=== PATIENT | female | born 1935 | race Hispanic/Latino ===

== ENCOUNTER 2018-06-04 18:38 | Emergency (ER) | payer MEDICARE ==
--- NOTE | 2018-06-04 19:11 | RAD ---
RADIOGRAPH CHEST 1 VIEW: 06/04/18 HISTORY: 83-year-old female status post syncope. FINDINGS: There are no air space densities, pulmonary edema, pneumothorax, or cardiomegaly. The lateral costop hrenic angles are sharp. There is a small, focal, faint nodular density at the right lateral upper/mi d lung zone, which is probably stable compared to 04/24/16. IMPRESSION: No acute cardiopulmonary findings. luz elena baker POS: RAFY
[2018-06-04 19:13] LABS: #Lymphocytes 0.6 thou/uL (1.20-3.40); #Monocytes 0.5 thou/uL (0.11-0.59); #Neutrophils 5.1 thou/uL (1.40-6.50); %Basophils 0.6 % (0.0-1.0); %Eosinophils 0.5 % (0.0-10.0); %Lymphocytes 10.2 % (21.0-51.0); %Monocytes 7.4 % (0.0-10.0); %Neutrophils 81.3 % (42.0-75.0); Hemoglobin 13.4 g/dL (12.0-16.0); Mean Corpuscular HGB CONC 32.9 g/dL (32.0-36.0); Mean Corpuscular Hemoglobin 30.7 pg (27.0-31.0); Mean Corpuscular Volume 93.5 fL (78.0-98.0); Mean Platelet Volume 8.9 fL (7.4-10.4); Platelet Count 88 thou/uL (130-400); RBC Distribution Width 12.2 % (11.5-14.5); Red Blood Cell (RBC) Count 4.35 mill/uL (4.20-5.40); White Blood Cell (WBC) Count 6.2 thou/uL (4.8-10.8)
[2018-06-04 19:30] LABS: ALT (SGPT) 30 U/L (8-55); AST (SGOT) 37 U/L (5-34); Albumin 4.1 g/dL (3.4-4.8); Alkaline Phosphatase 66 U/L (40-150); Anion Gap 13 mmol/L (10-20); BUN (Urea Nitrogen) 31 mg/dL (9.8-20.1); Bilirubin, Total 0.6 mg/dL (0.2-1.2); CK (CPK) 192 U/L (29-168); Calc. Creatinine Clearance 0 mL/min (70-130); Calcium 9.2 mg/dL (7.8-10.44); Carbon Dioxide 22 mmol/L (23-31); Chloride 106 mmol/L (98-107); Estimated GFR-MDRD 54; Glucose 149 mg/dL (83-110); Lipase 46 U/L (8-78); Potassium 3.9 mmol/L (3.5-5.1); Protein, Total 7.1 g/dL (6.0-8.3); Sodium 137 mmol/L (136-145)
[2018-06-04 19:35] LABS: Troponin I Less than 0.010 ng/mL (< 0.028)
[2018-06-04 20:01] LABS: Bilirubin Negative (Negative); Blood, Urine Small (Negative); Clarity CLEAR (Clear); Glucose, Urine (Dipstick) Negative (Negative); Leukocyte Small (Negative); Nitrite Negative (Negative); Protein, Urine (Dipstick) 30 mg/dL (Neg-Trace); Specific Gravity, Urine 1.021 (1.002-1.036)
[2018-06-04 20:03] LABS: Bacteria/HPF None Seen HPF (None Seen); Hyaline Casts/LPF 7-10 HYALINE CAST LPF (0-3 Hyaline); Pathc Cast-AUWi Flag 1.59 (0-2.49)
[2018-06-04 20:04] LABS: Renal Epithelial None Seen HPF (0-3); Transitional Epithelial NONE SEEN HPF (0-3)
== END 2018-06-04 20:30 | disposition home or self-care (01) ==
LOC: ERS 18:38
DX: R55 Syncope and collapse (principal); E03.9 Hypothyroidism, unspecified; E78.5 Hyperlipidemia, unspecified; I10 Essential (primary) hypertension; M19.90 Unspecified osteoarthritis, unspecified site
CPT/HCPCS: 36415; 71045; 80053; 81003; 81015; 82553; 83690; 84484; 85025; 93005; 94760

== ENCOUNTER 2018-07-19 11:31 | Observation (INO) | payer MEDICARE ==
[2018-07-19 13:39] LABS: Troponin I Less than 0.010 ng/mL (< 0.028)
[2018-07-19] MEDS ORDERED: Ondansetron ODT 4 MG TAB SL PRN (15:14)
[2018-07-19] MEDS ORDERED: Ondansetron PF 4 MG/2 ML Vial IVP PRN ×2 (15:14→18:18)
[2018-07-19] MEDS ORDERED: Acetaminophen 325 MG TAB PO PRN ×2 (15:14→18:18)
[2018-07-19 16:40] LABS: Troponin I Less than 0.010 ng/mL (< 0.028)
[2018-07-19] MEDS ORDERED: Nitroglycerin 0.4 MG TAB (25 Tab Bottle) PO PRN (18:18)
[2018-07-19] MEDS ORDERED: Senokot S 8.6-50 MG TAB PO PRN (18:18)
[2018-07-19] MEDS ORDERED: Ondansetron ODT 4 MG TAB PO PRN (18:18)
[2018-07-19] MEDS ORDERED: Calcium Carbonate 500 MG ChewTAB PO PRN (18:18)
[2018-07-19] MEDS ORDERED: Famotidine 20 MG TAB PO PRN (18:21)
[2018-07-19] MEDS ORDERED: REFRESH PLUS (Carboxymethylcellulose 0.5%) Opth Drops EA EYE PRN (18:21)
[2018-07-19] MEDS ORDERED: hydrALAZINE 20 MG/ML VIAL SLOW IVP PRN (18:22)
[2018-07-19] MEDS: Sodium Chloride 0.9% 1,000 ML IV SCH (18:51)
--- NOTE | 2018-07-19 20:44 | HP ---
DATE OF ADMISSION: 07/19/2018 PRIMARY CARE PHYSICIAN: Dr. Kirby. CHIEF COMPLAINT: Syncopal episode. HISTORY OF PRESENT ILLNESS: Patient is an 83-year-old female with hypertension, hypothyroidism prese nted to the emergency room with an episode of syncope earlier today. She had a syncopal episode 2 mo nths ago and was evaluated in the emergency room. She was subsequently discharged home at that time. Patient woke up around 5:30 a.m. and felt normal. Around 8:00 a.m., she felt lightheaded and dizzy. For this reason, she sat down on the chair. She then passed out without significant injuries. She regained consciousness after 1 to 2 minutes. There was no confusion at this time. She denies any ch est pain, shortness of breath, palpitations, urinary or bowel incontinence, headache, double vision, blurring of vision, facial asymmetry, or swallowing difficulty. She is compliant with all of her med ications. In the emergency room at [place], her initial vital signs showed temperature 97.1, respirations 16, pulse rate of 86, blood pressure 131/66 with O2 saturation 99% on room air. She received aspirin in the emergency room. Troponins were negative. D-dimer was negative. PAST MEDICAL HISTORY: 1. Hypertension. 2. Hyperlipidemia. 3. Degenerative joint disease. 4. Glaucoma. 5. Recent herpes zoster. 6. Hypothyroidism. 7. GERD. 8. Osteoporosis. PAST SURGICAL HISTORY: 1. Bilateral cataract surgery. 2. Left foot surgery. 3. Cervical spine surgery. ALLERGIES: Patient is allergic to INFLUENZA VACCINE, PENICILLIN. CURRENT HOME MEDICATIONS: Lisinopril 20 mg b.i.d., Crestor 5 mg at bedtime, levothyroxine 50 mcg rickey ly, meclizine 12.5 mg 3 times a day, latanoprost eyedrops at bedtime, Fosamax every 7 days, Pepcid as needed, Tylenol as needed. SOCIAL HISTORY: Patient currently lives at home with her son. No smoking, alcohol, or drug use. Indra nunez is FULL CODE and makes her own decision with help of her family. She has lost approximately 2-3 po unds recently. She has poor appetite per son. She is FULL CODE. FAMILY HISTORY: Negative for premature coronary artery disease. REVIEW OF SYSTEMS: The following complete review of systems was negative, unless otherwise mentioned in the HPI or below: Constitutional: Weight loss or gain, ability to conduct usual activities. Sk in: Rash, itching. Eyes: Double vision, pain. ENT/Mouth: Nose bleeding, neck stiffness, pain, te nderness. Cardiovascular: Palpitations, dyspnea on exertion, orthopnea. Respiratory: Shortness of breath, wheezing, cough, hemoptysis, fever, or night sweats. Gastrointestinal: Poor appetite, abdo nicholas pain, heartburn, nausea, vomiting, constipation, or diarrhea. Genitourinary: Urgency, frequen cy, dysuria, nocturia. Musculoskeletal: Pain, swelling. Neurologic/Psychiatric: Anxiety, depressi on. Allergy/Immunologic: Skin rash, bleeding tendency. PHYSICAL EXAMINATION: VITAL SIGNS: As discussed above. GENERAL: An 83-year-old female in no apparent distress. Denies any chest discomfort. HEENT: Atraumatic, normocephalic. Sclerae anicteric. Moist mucous membrane, no oral lesion. NECK: Supple, no JVD, no carotid bruit. LUNGS: Clear to auscultation bilaterally. No wheezing, rales, or rhonchi. HEART: S1, S2 present. Regular rate and rhythm. No murmur, rubs, or gallops appreciated. ABDOMEN: Soft, nontender, bowel sounds present. EXTREMITIES: No edema or calf tenderness. NEUROLOGIC: Grossly nonfocal, moves all four extremities. PSYCHIATRY: Alert, awake, oriented x3. SKIN: Warm and dry. LYMPH NODES: No palpable lymph nodes in the neck. PERIPHERAL VASCULAR: Radial pulses palpable bilaterally. MUSCULOSKELETAL: No joint swelling or tenderness. LABORATORY FINDINGS: CBC showed WBC 11.3, hemoglobin 14.7, hematocrit 42.5, platelet 149. D-dimer w as negative. Chemistries showed sodium 136, potassium 4.3, chloride 102, bicarbonate 24, BUN 33, cre atinine 0.94, glucose of 135. AST 50, ALT 62. Troponin negative. BNP 47.4. Lactic acid was normal . Urinalysis was negative for WBC. EKG by my review showed sinus rhythm with left axis deviation. Chest x-ray recently by my review was negative for infiltrate. IMPRESSION: 1. Syncopal episode. Possibilities include hypotension versus cardiogenic syncope. Patient will be kept n.p.o. past midnight. Serial troponins. Echocardiogram and carotid Doppler will be obtained. We will also rule out orthostatic hypotension. Due to significant low BMI, we will also check corti gene and TSH in a.m. 2. Moderate protein-calorie malnutrition. 3. Hypertension. We will reduce the lisinopril dose for now. 4. Glaucoma. We will resume her home medications. 5. Mild dehydration. We will start her on gentle IV hydration. 6. Hyperlipidemia. We will continue statins. 7. Chronic kidney disease, stage 3. Plan of care was discussed with the patient and the son at the bedside. They stated understanding.
[2018-07-19] MEDS ORDERED: Polyvinyl Alcohol 1.4%/Povidone 0.6% Opth Drops EA EYE PRN (21:04)
--- NOTE | 2018-07-19 21:08 | ULT ---
CAROTID ULTRASOUND: 07/19/18 HISTORY: Syncope. Multiple longitudinal and transverse images of the carotid arteries obtained using a multihertz linea r array transducer. Real time, color flow and spectral waveform doppler analysis demonstrates some mi nimal intimal thickening involving the right and left common and internal carotid arteries. No eviden ce of increased flow velocity seen. Antegrade flow is seen in both vertebral arteries. IMPRESSION: Normal bilateral carotid ultrasound evaluation with no evidence of significant common or internal car otid artery stenosis seen. POS: HANANE
[2018-07-19] MEDS: Latanoprost 0.005% Ophth Soln 2.5 ml Bottle EA EYE SCH (21:40)
[2018-07-19] MEDS: Rosuvastatin 5 MG TAB PO SCH (21:40)
[2018-07-19] MEDS: Meclizine HCl 12.5 MG TAB PO SCH (21:40)
[2018-07-19] MEDS: Meloxicam 7.5 MG TAB PO SCH (21:40)
[2018-07-20 07:35] LABS: Anion Gap 9 mmol/L (10-20); BUN (Urea Nitrogen) 30 mg/dL (9.8-20.1); Calc. Creatinine Clearance 39 mL/min (70-130); Calcium 8.5 mg/dL (7.8-10.44); Carbon Dioxide 19 mmol/L (23-31); Chloride 109 mmol/L (98-107); Estimated GFR-MDRD 78; Glucose 87 mg/dL (83-110); Magnesium 2.1 mg/dL (1.6-2.6); Potassium 4.1 mmol/L (3.5-5.1); Sodium 133 mmol/L (136-145)
[2018-07-20] MEDS: Levothyroxine Sodium 50 MCG TAB PO SCH (07:42)
[2018-07-20] MEDS ORDERED: Prevnar 13-Val Conj/PF 0.5 ML SYRINGE IM ONE (09:00)
[2018-07-20] MEDS: Lisinopril 10 MG TAB PO SCH (12:31)
[2018-07-20] MEDS: Meclizine HCl 12.5 MG TAB PO SCH ×3 (12:32→20:45)
[2018-07-20] MEDS: Folic Acid 1 MG TAB PO SCH (12:32)
[2018-07-20] MEDS: Multivit, Therapeutic 1 TAB PO SCH (12:32)
[2018-07-20 14:00] LABS: #Eosinphils 0.3 thou/uL (0.0-0.7); #Lymphocytes 1.2 thou/uL (1.20-3.40); #Monocytes 0.6 thou/uL (0.11-0.59); #Neutrophils 2.1 thou/uL (1.40-6.50); %Basophils 0.9 % (0.0-1.0); %Eosinophils 7.1 % (0.0-10.0); %Lymphocytes 27.4 % (21.0-51.0); %Monocytes 14.7 % (0.0-10.0); %Neutrophils 49.9 % (42.0-75.0); Hemoglobin 13.3 g/dL (12.0-16.0); Mean Corpuscular HGB CONC 32.5 g/dL (32.0-36.0); Mean Corpuscular Hemoglobin 31.3 pg (27.0-31.0); Mean Corpuscular Volume 96.5 fL (78.0-98.0); Mean Platelet Volume 8.5 fL (7.4-10.4); Platelet Count 124 thou/uL (130-400); RBC Distribution Width 13.9 % (11.5-14.5); Red Blood Cell (RBC) Count 4.24 mill/uL (4.20-5.40); White Blood Cell (WBC) Count 4.2 thou/uL (4.8-10.8)
[2018-07-20 14:14] VITALS: BMI 14.3
[2018-07-20 14:17] LABS: Anion Gap 13 mmol/L (10-20); BUN (Urea Nitrogen) 24 mg/dL (9.8-20.1); Calc. Creatinine Clearance 37 mL/min (70-130); Calcium 8.9 mg/dL (7.8-10.44); Carbon Dioxide 20 mmol/L (23-31); Chloride 108 mmol/L (98-107); Estimated GFR-MDRD 73; Glucose 86 mg/dL (83-110); Potassium 4.3 mmol/L (3.5-5.1); Sodium 137 mmol/L (136-145)
[2018-07-20] MEDS: Sodium Chloride 0.9% 1,000 ML IV SCH ×2 (14:29→20:46)
--- NOTE | 2018-07-20 18:40 | PDOC.PN ---
- Subjective Encounter Start Date: 07/20/18 Encounter Start Time: 14:00 Patient lying in bed with son at bedside. She denies any complaints no events over night, no chest pain, no dizziness or syncopal like episode. - Objective Resuscitation Status: Resuscitation Status FULL:Full Resuscitation MAR Reviewed: Yes Vital Signs & Weight: Vital Signs (12 hours) Temp Pulse Pulse Pulse Resp BP BP 07/20/18 14:45 98.2 F 65 20 07/20/18 14:27 57 L 65 150/71 H 185/79 H 07/20/18 11:24 97.6 F 56 L 16 07/20/18 07:21 98.5 F 63 16 BP BP BP Pulse Ox 07/20/18 14:45 150/71 H 99 07/20/18 14:27 07/20/18 11:24 143/65 H 99 07/20/18 07:21 165/70 H 160/71 H 129/66 98 Weight Admit Weight 85 lb 11.2 oz Weight 88 lb 11.2 oz I&O: 07/19/18 07/20/18 07/21/18 06:59 06:59 06:59 Intake Total 1162 Output Total 200 Balance 962 Result Diagrams: 07/20/18 13:51 07/20/18 13:51 Radiology Reviewed by me: Yes Phys Exam - Physical Examination Constitutional: NAD Cachectic HEENT: PERRLA, moist MMs, oral pharynx no lesions Neck: no nodes, no JVD, supple Respiratory: no wheezing, no rales, no rhonchi, clear to auscultation bilateral Cardiovascular: RRR, no significant murmur, no rub Gastrointestinal: soft, non-tender, no distention, positive bowel sounds Musculoskeletal: no edema, pulses present Neurological: non-focal, normal sensation, moves all 4 limbs Lymphatic: no nodes Psychiatric: normal affect, A&O x 3 Skin: no rash, normal turgor, cap refill <2 seconds Dx/Plan (1) Syncope Code(s): R55 - SYNCOPE AND COLLAPSE Status: Acute (2) Protein calorie malnutrition Code(s): E46 - UNSPECIFIED PROTEIN-CALORIE MALNUTRITION Status: Acute (3) Hypertension Code(s): I10 - ESSENTIAL (PRIMARY) HYPERTENSION Status: Acute (4) Chronic kidney disease (CKD) Code(s): N18.9 - CHRONIC KIDNEY DISEASE, UNSPECIFIED Status: Acute - Plan cont current plan of care, plan discussed w/ family, DVT proph w/SCDs * Carotid doppler unremarkable. * Awaiting results of echo * Monitor closely * PT/OT * Encourage increase oral intake
[2018-07-20] MEDS: Meloxicam 7.5 MG TAB PO SCH (20:44)
[2018-07-20] MEDS: Latanoprost 0.005% Ophth Soln 2.5 ml Bottle EA EYE SCH (20:44)
[2018-07-20] MEDS: Rosuvastatin 5 MG TAB PO SCH (20:45)
--- NOTE | 2018-07-20 23:21 | CON ---
DATE OF CONSULTATION: 07/20/2018 HISTORY: Cristiane Carter is an 83-year-old, female that I evaluated in the office in 01/2017. Three weeks prior to that and also one year prior to that, she had a fall. With both episodes, she remembers falling, remembers hitting the floor, and historically it did not sound like she had true syncope. EKG at that time showed that she was in normal sinus rhythm with extreme sinus bradycardia with heart rate of 45 per minute. She was on bisoprolol 5 mg/hydrochlorothiazide 6.25 mg. She was placed on one-half of a tablet per day and ultimately that was discontinued. Echocardiogram at that time revealed ejection fraction of 50%-55% with severe mitral regurgitation, aortic valvular sclerosis, and moderate tricuspid regurgitation. She apparently has had two other episodes of ayncope, one was in buddhism 2 months ago when she was kneeling and apparently fell over and someone caught her before she hit the floor. It is unclear how long she was out with that episode. She was evaluated in the emergency room on 06/05/2018 with the episode 2 months ago. It was recommend that she be admitted for further evaluation; however, she declined. She now has had another syncopal episode. Around 8:00 a.m., she felt lightheaded and dizzy as she was walking towards a dinning room and sat down in a dinning room chair. She apparently then passed down, regained consciousness several minutes later. She apparently did not fall to the floor. She denies any chest pain, shortness of breath, palpitations or vertiginous type symptoms. She was seen in [facility] and then transferred here for further evaluation. PAST MEDICAL HISTORY: Hypertension, hyperlipidemia, hypothyroidism, GERD, osteoporosis. OPERATIONS: Bilateral cataract surgery, left foot surgeries, cervical spine surgery. ALLERGIES: Include INFLUENZA VACCINE and PENICILLIN. MEDICATIONS: Fosamax q.7 days, calcium/vitamin D3 daily, Pepcid 20 mg daily p.r.n., levothyroxine 50 mcg daily, lisinopril 20 mg b.i.d., meclizine 12.5 mg t.i.d. p.r.n., Mobic 7.5 at bedtime, rosuvastatin 5 mg at bedtime, and mometasone 17 grams p.r.n. SOCIAL HISTORY: She does not smoke or drink. FAMILY HISTORY: Negative for coronary artery disease. REVIEW OF SYSTEMS: A 12-point review of systems unremarkable. PHYSICAL EXAMINATION: VITAL SIGNS: Blood pressure 150/71, pulse of 65 (lisinopril has been reduced from 20 b.i.d. to 10 daily). HEENT: PERRL. NECK: Supple. CHEST: Clear. CARDIAC: S1, S2 normal, without any S3, S4 or murmurs. Carotid upstrokes normal, without bruits. ABDOMEN: Normal bowel sounds, without tenderness. EXTREMITIES: Revealed no clubbing, cyanosis or edema. NEUROLOGIC: Grossly intact. SKIN: Warm and dry. LABORATORY DATA: EKG revealed normal sinus rhythm with left axis deviation, poor R-wave progression. She has not had any significant bradycardia since admission. Hemoglobin 13.3, hematocrit 40.9, white count 4200, platelets 124, 000. D-dimer 0.39. Sodium 136, potassium 4.3, chloride 102, carbon dioxide 24 , BUN 33, creatinine 0.98. AST 50, ALT 62. Cardiac enzymes are negative x4. BNP 47.2. Cortisol is normal. TSH is normal. IMPRESSION: 1. Syncopal episode now and as well as 2 months ago. 2. Extreme sinus bradycardia in the past, heart rate of 45 per minute when she was on bisoprolol 5 mg, which was stopped 1 year ago. 3. Hypertension. 4. Hypercholesterolemia. 5. Hypothyroidism. 6. Gastroesophageal reflux disease. 7. Osteoporosis. 8. Possible volume depletion with elevated BUN to creatinine ratio. PLAN: Ms. Carter will have an echo performed. She will continue with cardiac monitoring. I imagine that this episode was due to either hypotension with her elevated BUN to creatinine ratio or some type of bradyarrhythmia. I discussed with patient and her son further evaluation of this problem. Consideration could be given to either LINQ implantable loop recorder or a 30-day monitor at home. If we do not see any significant arrhythmias with continued monitoring, overall, I would recommend sending her home with a 30-day monitor. If that does not show any significant arrhythmias, then consideration should be given to the LINQ implantation. [facility] CENTERDylan
[2018-07-21] MEDS: Levothyroxine Sodium 50 MCG TAB PO SCH (05:58)
[2018-07-21] MEDS: Meclizine HCl 12.5 MG TAB PO SCH ×2 (09:14→14:36)
[2018-07-21] MEDS: Multivit, Therapeutic 1 TAB PO SCH (09:15)
[2018-07-21] MEDS: Folic Acid 1 MG TAB PO SCH (09:15)
[2018-07-21] MEDS: Lisinopril 10 MG TAB PO SCH (09:15)
[2018-07-21 12:00] VITALS: BP 127/59; TEMP 97.7
== END 2018-07-21 16:24 | disposition home or self-care (01) ==
LOC: ERS 11:31 → 2SW 12:50
PROVIDERS: ADMIT Internal Medicine; ATTEND Internal Medicine
DX: R55 Syncope and collapse (principal); R00.1 Bradycardia, unspecified; E03.9 Hypothyroidism, unspecified; E78.5 Hyperlipidemia, unspecified; M19.90 Unspecified osteoarthritis, unspecified site; K21.9 Gastro-esophageal reflux disease without esophagitis; M81.0 Age-related osteoporosis without current pathological fracture; I12.9 Hypertensive chronic kidney disease with stage 1 through stage 4 chronic kidney disease, or unspecified chronic kidney disease; N18.3 Chronic kidney disease, stage 3 (moderate); E86.0 Dehydration; E44.0 Moderate protein-calorie malnutrition; Z68.1 Body mass index [BMI] 19.9 or less, adult; Z79.1 Long term (current) use of non-steroidal anti-inflammatories (NSAID); Z79.83 Long term (current) use of bisphosphonates; Z79.899 Other long term (current) drug therapy; Z88.0 Allergy status to penicillin; Z88.7 Allergy status to serum and vaccine; Z91.018 Allergy to other foods
CPT/HCPCS: 80048 ×2; 82533; 83735; 84443; 84484; 85025; 85379; 93005; 93306; 93880; 96360; 96361 ×2; 97116 ×2; 97139; 97530; 99285; G0378 ×2; G8978; G8979; 36415

== ENCOUNTER 2023-04-14 05:31 | Day surgery (SDC) | payer MEDICARE ==
[2023-04-13 10:26] VITALS: BMI 15.7
[2023-04-14] MEDS ORDERED: Nitroglycerin 50 MG/250 ML BOT 0 ML ONE (06:24)
[2023-04-14] MEDS ORDERED: Lidocaine 1% (PF) 30 ML VIAL ONE (06:24)
[2023-04-14] MEDS ORDERED: Heparin 10,000 UNITS/ 10 ML VIAL ONE (06:24)
[2023-04-14] MEDS ORDERED: Adenosine 6 MG/2 ML VIAL ONE (06:24)
[2023-04-14] MEDS ORDERED: fentaNYL 50 mcg/mL 1 mL Vial ONE (06:55)
[2023-04-14] MEDS ORDERED: Midazolam HCl 2 mg/2 ml Vial ONE (06:55)
[2023-04-14 07:05] LABS: #Basophils 0.1 thou/uL (0.0-0.2); #Eosinphils 0.2 thou/uL (0.0-0.7); #Monocytes 0.5 thou/uL (0.11-0.59); #Neutrophils 3.8 thou/uL (1.40-6.50); %Basophils 0.9 % (0.0-1.0); %Eosinophils 3.1 % (0.0-10.0); %Lymphocytes 17.8 % (21.0-51.0); %Monocytes 9.5 % (0.0-10.0); %Neutrophils 68.3 % (42.0-75.0); Hematocrit 41.2 % (36.0-47.0); Hemoglobin 13.7 g/dL (12.0-16.0); Mean Corpuscular HGB CONC 33.3 g/dL (32.0-36.0); Mean Corpuscular Hemoglobin 30.9 pg (27.0-31.0); Mean Platelet Volume 10.7 fL (7.4-10.4); Platelet Count 121 10x3/uL (130-400); RBC Distribution Width 13.7 % (11.5-14.5); Red Blood Cell (RBC) Count 4.43 mill/uL (4.20-5.40); White Blood Cell (WBC) Count 5.6 10x3/uL (4.8-10.8)
[2023-04-14 07:30] LABS: ALT (SGPT) 29 U/L (8-55); AST (SGOT) 30 U/L (5-34); Albumin 4.2 g/dL (3.4-4.8); Alkaline Phosphatase 56 U/L (40-110); Anion Gap 16 mmol/L (10-20); BUN (Urea Nitrogen) 19 mg/dL (9.8-20.1); Bilirubin, Total 0.5 mg/dL (0.2-1.2); Calc. Creatinine Clearance 37 mL/min (70-130); Calcium 9.4 mg/dL (7.8-10.44); Carbon Dioxide 23 mmol/L (23-31); Cardiac Risk 2.3 (Less than 4.5); Chloride 104 mmol/L (98-107); Cholesterol 164 mg/dl (< 200 Desired); Estimated GFR 81; Glucose 86 mg/dL (83-110); HDL Cholesterol 71 mg/dL (>60 Neg Risk); LDL Cholesterol, Calculated 80 mg/dL; Potassium 3.6 mmol/L (3.5-5.1); Protein, Total 7.2 g/dL (5.8-8.1); Sodium 139 mmol/L (136-145); Triglycerides 66 mg/dL (Less than 150)
[2023-04-14] MEDS ORDERED: Protamine Sulfate 50 MG/5 ML VIAL ONE (08:09)
[2023-04-14] MEDS ORDERED: Lisinopril 20 MG TAB PO SCH (09:45)
[2023-04-14] MEDS ORDERED: Levothyroxine Sodium 75 MCG TAB PO SCH (09:45)
== END 2023-04-14 15:00 | disposition home or self-care (01) ==
LOC: SDC 05:31
PROVIDERS: ATTEND Internal Medicine Cardiovascular Disease
DX: I42.9 Cardiomyopathy, unspecified (principal); R94.31 Abnormal electrocardiogram [ECG] [EKG]; E78.00 Pure hypercholesterolemia, unspecified; E03.9 Hypothyroidism, unspecified; I10 Essential (primary) hypertension; M81.0 Age-related osteoporosis without current pathological fracture; Z79.890 Hormone replacement therapy; Z79.899 Other long term (current) drug therapy; Z88.1 Allergy status to other antibiotic agents; Z88.0 Allergy status to penicillin; Z88.7 Allergy status to serum and vaccine; Z91.018 Allergy to other foods; Z91.030 Bee allergy status
CPT/HCPCS: 80053; 80061; 85025; 85347; 93005; 93458; C1769 ×2; J3010; 36415; 93010; 99152; J0153; J1644; J2001; J2250; J2720

== ENCOUNTER 2024-07-10 22:18 | Inpatient (IN) | payer MEDICARE ==
[~2024-07-10 22:18] MED LIST: Iopamidol 370 76% 100 ML VIAL ONE
[2024-07-10] MEDS ORDERED: Fentanyl CADD 100 ML IV SCH (22:30)
[2024-07-10 22:40] LABS: Actual Bicarbonate (HCO3a) 26.2 mEq/L (22-28); Analyzer IN Cardio ER; Base Excess (BEa) 4.4 mEq/L (-2.0 to +3.0); CO2 Tension 29.9 mmHg (35.0-45.0); Calcium, Ionized (arterial) 1.12 mmol/L (1.12-1.30); Carboxyhemoglobin (COHb) 0.3 gm% (0.0-3.0); Hematocrit-ABG 32 % (36.0-47.0); O2 Tension (PaO2), arterial 364.6 mmHg (> 60.0); pH, Arterial 7.561 (7.35-7.45)
[2024-07-10 22:45] LABS: Puncture Site Left Brachial artery
[2024-07-10 22:46] LABS: ALV-art Gradient 311.025 mmHg (0-20)
[2024-07-10] MEDS ORDERED: Ondansetron PF 4 MG/2 ML Vial IVP PRN (22:50)
[2024-07-10] MEDS ORDERED: Acetaminophen 325 MG TAB PER TUBE PRN (22:50)
[2024-07-10] MEDS ORDERED: metroNIDAZOLE 500 MG (100 mL) BAG ONE (22:53)
[2024-07-10] MEDS ORDERED: Electrolyte Replacement Protocol 1 EACH FS PRN (23:00)
[2024-07-10] MEDS ORDERED: Propofol 1,000 MG/100 ML VIAL IV ONE (23:06)
[2024-07-10] MEDS ORDERED: Sodium Chloride 0.45% 1,000 ML IV SCH (23:15)
[2024-07-10] MEDS ORDERED: Propofol 1,000 MG/100 ML VIAL IV PRN (23:15)
[2024-07-10] MEDS ORDERED: Fentanyl BOLUS 250 ML IVPB PRN (23:15)
[2024-07-10] MEDS ORDERED: DISCONTINUE PREVIOUS NARCOTIC PAIN MEDICATIONS AND BENZODIAZEPINES FS SCH (23:15)
[2024-07-10] MEDS ORDERED: Propofol BOLUS 1,000 MG/100 ML VIAL IV PRN (23:15)
[2024-07-10] MEDS ORDERED: Morphine 2 MG/ML VIAL SLOW IVP PRN (23:15)
[2024-07-11] MEDS ORDERED: Glucagon 1 MG/ML KIT IM PRN (00:26)
[2024-07-11] MEDS ORDERED: Dextrose 5% in Water 1,000 ML IV PRN (00:26)
[2024-07-11] MEDS ORDERED: Dextrose 50% Abboject 50 ML SYRINGE SLOW IVP PRN (00:26)
[2024-07-11] MEDS: Meropenem 1 GM in Sodium Chloride 0.9% 100 ML IVPB SCH ×3 (00:45→12:59)
[2024-07-11] MEDS: Lactated Ringer's 1,000 ML IV SCH ×2 (00:45→02:30)
[2024-07-11] MEDS: Ventilator Sedation Protocol 1 EACH FS ONE (03:06)
[2024-07-11 03:55] LABS: #Basophils 0.03 10x3/uL (0.0-0.2); #Eosinophils Less than 0.03 10x3/uL (0.0-0.7); %Basophils 0.2 % (0.0-1.0); %Eosinophils 0.1 % (0.0-10.0); %Lymphocytes 8.4 % (21.0-51.0); %Monocytes 7.7 % (0.0-10.0); %Neutrophils 83.1 % (42.0-75.0); Hematocrit 32.2 % (36.0-47.0); Hemoglobin 9.7 g/dL (12.0-16.0); Mean Corpuscular HGB CONC 30.1 g/dL (32.0-36.0); Mean Corpuscular Hemoglobin 25.7 pg (27.0-31.0); Mean Corpuscular Volume 85.4 fL (78.0-98.0); Mean Platelet Volume 10.5 fL (7.4-10.4); Platelet Count 254 10x3/uL (130-400); RBC Distribution Width 17.3 % (11.5-14.5); Red Blood Cell (RBC) Count 3.77 mill/uL (4.20-5.40)
[2024-07-11 04:32] LABS: ALT (SGPT) 15 U/L (8-55); AST (SGOT) 16 U/L (5-34); Alkaline Phosphatase 65 U/L (40-110); Anion Gap 14 mmol/L (10-20); BUN (Urea Nitrogen) 14 mg/dL (9.8-20.1); Bilirubin, Total 0.8 mg/dL (0.2-1.2); Calc. Creatinine Clearance 38 mL/min (70-130); Calcium 8.2 mg/dL (7.8-10.44); Carbon Dioxide 21 mmol/L (23-31); Chloride 113 mmol/L (98-107); Estimated GFR 88; Globulin 3.8 g/dL (2.4-3.5); Glucose 103 mg/dL (83-110); Magnesium 1.7 mg/dL (1.6-2.6); Potassium 3.2 mmol/L (3.5-5.1); Protein, Total 5.8 g/dL (5.8-8.1); Sodium 145 mmol/L (136-145)
[2024-07-11 07:11] LABS: Actual Bicarbonate (HCO3a) 28.9 mEq/L (22-28); Base Excess (BEa) 6.1 mEq/L (-2.0 to +3.0); CO2 Tension 34.8 mmHg (35.0-45.0); Calcium, Ionized (arterial) 1.12 mmol/L (1.12-1.30); Carboxyhemoglobin (COHb) 0.3 gm% (0.0-3.0); Hematocrit-ABG 29 % (36.0-47.0); Hemoglobin (Hb) 9.7 g/dL (12.0-16.0); Potassium - ABG Lab 2.94 mmol/L (3.70-5.30); pH, Arterial 7.537 (7.35-7.45)
[2024-07-11 07:13] LABS: Puncture Site Right Radial artery
[2024-07-11] MEDS: Potassium Chloride 40 MEQ in Premix 1 BAG IVPB SCH (08:15)
[2024-07-11] MEDS: Enoxaparin 30 MG (0.3 mL) SYRINGE SC SCH (08:16)
[2024-07-11] MEDS: Famotidine/PF 20 mg/2ml Vial SLOW IVP SCH (08:16)
[2024-07-11] MEDS: Magnesium 2 GM/50 ML(in water) 2 GM in Premix 1 BAG IVPB SCH (08:25)
[2024-07-11] MEDS: Potassium Chloride 20 MEQ in Premix 1 BAG IVPB SCH (10:16)
[2024-07-11 13:09] LABS: Potassium 3.7 mmol/L (3.5-5.1)
[2024-07-11 14:31] VITALS: BMI 15.0
[2024-07-11] MEDS: Dexmedetomidine In 0.9 % NaCl 100 ML IV SCH (17:17)
[2024-07-12 05:30] LABS: #Basophils 0.07 10x3/uL (0.0-0.2); #Eosinophils Less than 0.03 10x3/uL (0.0-0.7); %Basophils 0.4 % (0.0-1.0); %Eosinophils 0.1 % (0.0-10.0); %Lymphocytes 5.9 % (21.0-51.0); %Monocytes 6.4 % (0.0-10.0); %Neutrophils 86.6 % (42.0-75.0); Hematocrit 28.8 % (36.0-47.0); Hemoglobin 8.8 g/dL (12.0-16.0); Mean Corpuscular HGB CONC 30.6 g/dL (32.0-36.0); Mean Platelet Volume 9.9 fL (7.4-10.4); Platelet Count 225 10x3/uL (130-400); RBC Distribution Width 17.7 % (11.5-14.5); Red Blood Cell (RBC) Count 3.39 mill/uL (4.20-5.40)
[2024-07-12 05:41] LABS: ALT (SGPT) 12 U/L (8-55); AST (SGOT) 14 U/L (5-34); Albumin 1.8 g/dL (3.4-4.8); Alkaline Phosphatase 62 U/L (40-110); Anion Gap 12 mmol/L (10-20); BUN (Urea Nitrogen) 17 mg/dL (9.8-20.1); Bilirubin, Total 0.4 mg/dL (0.2-1.2); Calc. Creatinine Clearance 40 mL/min (70-130); Calcium 8.4 mg/dL (7.8-10.44); Carbon Dioxide 26 mmol/L (23-31); Chloride 114 mmol/L (98-107); Estimated GFR 88; Globulin 3.8 g/dL (2.4-3.5); Glucose 93 mg/dL (83-110); Magnesium 2.5 mg/dL (1.6-2.6); Potassium 3.9 mmol/L (3.5-5.1); Protein, Total 5.6 g/dL (5.8-8.1); Sodium 148 mmol/L (136-145)
[2024-07-12] MEDS: Fentanyl CADD 100 ML IV SCH (06:55)
[2024-07-12] MEDS: Lorazepam 2 MG/ML VIAL SLOW IVP PRN ×2 (07:53→14:04)
[2024-07-12] MEDS: Famotidine/PF 20 mg/2ml Vial SLOW IVP SCH (09:46)
[2024-07-12] MEDS: Lactated Ringer's 500 ML IV SCH (09:59)
[2024-07-12] MEDS: Scopolamine 1 mg/72 hour Patch TD SCH (10:00)
[2024-07-12] MEDS: Lactated Ringer's 1,000 ML IV SCH (10:01)
[2024-07-12 11:07] VITALS: BMI 14.0
[2024-07-12] MEDS ORDERED: Glycopyrrolate 0.2 MG/ML 5 ML SYRINGE SLOW IVP PRN (13:53)
[2024-07-12] MEDS: Morphine 4 MG/ML VIAL SLOW IVP PRN (14:04)
[2024-07-12] MEDS: Morphine 4 MG/ML VIAL ONE (15:10)
[2024-07-12] MEDS: Lorazepam 2 MG/ML VIAL ONE (15:10)
[2024-07-13] MEDS ORDERED: Levothyroxine Sodium 75 MCG TAB PO SCH (06:00)
[2024-07-13 07:56] VITALS: BP 110/61; TEMP 98.9
[2024-07-13] MEDS: Morphine 2 MG/ML VIAL SLOW IVP PRN (08:50)
[2024-07-13] MEDS: Morphine 2 MG/ML VIAL SLOW IVP SCH (10:49)
== END 2024-07-13 15:12 | disposition hospice, inpatient (51) | DRG 871 ==
LOC: ERS 22:18 → CCU 22:29 → T4-A 07-12 16:09
PROVIDERS: ADMIT Internal Medicine; ATTEND Internal Medicine
PROC: 4A133R1 Monitoring of Arterial Saturation, Peripheral, Percutaneous Approach (ICD-10-PCS; principal; 2024-07-10)
PROC: 3E03329 Introduction of Other Anti-infective into Peripheral Vein, Percutaneous Approach (ICD-10-PCS; 2024-07-10)
PROC: 0BH17EZ Insertion of Endotracheal Airway into Trachea, Via Natural or Artificial Opening (ICD-10-PCS; 2024-07-10)
PROC: 5A1945Z Respiratory Ventilation, 24-96 Consecutive Hours (ICD-10-PCS; 2024-07-10)
DX: A41.9 Sepsis, unspecified organism (principal); E43 Unspecified severe protein-calorie malnutrition; J69.0 Pneumonitis due to inhalation of food and vomit; J18.9 Pneumonia, unspecified organism; G93.41 Metabolic encephalopathy; J96.21 Acute and chronic respiratory failure with hypoxia; I13.0 Hypertensive heart and chronic kidney disease with heart failure and stage 1 through stage 4 chronic kidney disease, or unspecified chronic kidney disease; I50.32 Chronic diastolic (congestive) heart failure; R64 Cachexia; Z68.1 Body mass index [BMI] 19.9 or less, adult; E87.0 Hyperosmolality and hypernatremia; N18.9 Chronic kidney disease, unspecified; F03.90 Unspecified dementia, unspecified severity, without behavioral disturbance, psychotic disturbance, mood disturbance, and anxiety; E78.5 Hyperlipidemia, unspecified; E03.9 Hypothyroidism, unspecified; D63.1 Anemia in chronic kidney disease; Z98.890 Other specified postprocedural states; Z51.5 Encounter for palliative care; Z86.16 Personal history of COVID-19; Z88.7 Allergy status to serum and vaccine; Z88.0 Allergy status to penicillin; Z91.018 Allergy to other foods; Z91.012 Allergy to eggs; R53.81 Other malaise
CPT/HCPCS: 36415; 36416; 36600; 70450; 71045; 71275; 80053; 82805; 83735; 85025; 93005; 94002; 94003; 94760; 96365; 96368; J1650; J2060; J2185; J2272; J2704; J3010; J3475; J3480; J3490; J7120; Q9967

== ENCOUNTER 2024-07-13 15:11 | Inpatient (IN) | payer OTHER ==
[2024-07-13] MEDS ORDERED: Morphine 2 MG/ML VIAL SLOW IVP PRN (15:30)
[2024-07-13] MEDS ORDERED: Lorazepam 2 MG/ML VIAL SLOW IVP PRN (15:31)
[2024-07-13] MEDS ORDERED: Bisacodyl 10 MG SUPP PR PRN (15:32)
[2024-07-13] MEDS ORDERED: Ondansetron PF 4 MG/2 ML Vial IVP PRN (15:32)
[2024-07-13] MEDS ORDERED: Acetaminophen 650 MG Suppository PR PRN (15:34)
[2024-07-13] MEDS ORDERED: Scopolamine 1 mg/72 hour Patch TOP PRN (15:35)
[2024-07-13] MEDS ORDERED: GLYCOPYRROLATE/PF 0.2 MG/ML VIAL SLOW IVP PRN (15:35)
[2024-07-13] MEDS: Morphine 2 MG/ML VIAL SLOW IVP SCH (16:31)
[2024-07-13] MEDS: Lorazepam 2 MG/ML VIAL SLOW IVP SCH (17:05)
[2024-07-13 17:32] VITALS: BMI 14.8
[2024-07-14 09:12] VITALS: BMI 14.8
[2024-07-14] MEDS: Morphine 2 MG/ML VIAL SLOW IVP SCH (12:12)
[2024-07-16 20:19] VITALS: BP 45/28; TEMP 98.8
== END 2024-07-16 20:45 | disposition expired | DRG 951 ==
LOC: T4-A 15:12
PROVIDERS: ADMIT Family Medicine; ATTEND Family Medicine
DX: Z51.5 Encounter for palliative care (principal); J96.01 Acute respiratory failure with hypoxia; A41.9 Sepsis, unspecified organism; J69.0 Pneumonitis due to inhalation of food and vomit; G93.41 Metabolic encephalopathy; E43 Unspecified severe protein-calorie malnutrition; E87.0 Hyperosmolality and hypernatremia; I50.32 Chronic diastolic (congestive) heart failure; I13.0 Hypertensive heart and chronic kidney disease with heart failure and stage 1 through stage 4 chronic kidney disease, or unspecified chronic kidney disease; E03.9 Hypothyroidism, unspecified; Z88.0 Allergy status to penicillin; Z88.7 Allergy status to serum and vaccine; Z91.012 Allergy to eggs; Z88.8 Allergy status to other drugs, medicaments and biological substances; N18.9 Chronic kidney disease, unspecified; Z98.890 Other specified postprocedural states; Z98.41 Cataract extraction status, right eye; Z98.42 Cataract extraction status, left eye
CPT/HCPCS: J2060; J2272